=== PATIENT | female | born 1960 | race Two or more races ===

== ENCOUNTER 2020-10-11 16:21 | Emergency (ER) | payer OTHER ==
[~2020-10-11] VITALS: Ht 160 cm; Wt 61.7 kg
[2020-10-11] MEDS ORDERED: NEURONTIN300 MG PO (16:42)
[2020-10-11] MEDS ORDERED: PRISTIQ25 MG PO (16:43)
[2020-10-11] MEDS ORDERED: CLONAZEPAM1 MG PO (16:43)
[2020-10-11] MEDS ORDERED: PEPCID AC20 MG PO (20:38)
[2020-10-11] MEDS ORDERED: LEVSIN0.125 MG PO (20:38)
[2020-10-11] MEDS ORDERED: INTESTINEX680 M1 PO (20:38)
== END 2020-10-11 20:49 | disposition home or self-care (01) ==
LOC: ER 16:21
DX: K52.9 Noninfective gastroenteritis and colitis, unspecified (principal); R10.84 Generalized abdominal pain

== ENCOUNTER 2020-11-14 13:49 | Outpatient (CLI) | payer OTHER ==
[~2020-11-14 13:49] MED LIST: CLONAZEPAM1 MG PO; INTESTINEX680 M1 PO; LEVSIN0.125 MG PO; NEURONTIN300 MG PO; PEPCID AC20 MG PO; PRISTIQ25 MG PO
== END 2020-11-14 13:56 | disposition home or self-care (01) ==
LOC: RAD 13:49
DX: M79.641 Pain in right hand (principal)

== ENCOUNTER 2020-12-03 09:44 | Emergency (ER) | payer OTHER ==
[~2020-12-03] VITALS: Ht 160 cm; Wt 63.5 kg
== END 2020-12-03 13:05 | disposition home or self-care (01) ==
LOC: ER 09:44
DX: R51.9 Headache, unspecified (principal)

== ENCOUNTER 2021-04-19 14:19 | Emergency (ER) | payer OTHER ==
[~2021-04-19] VITALS: Ht 165.1 cm; Wt 68.0 kg
[2021-04-19] MEDS ORDERED: NAPROXEN250 MG PO (17:08)
[2021-04-19] MEDS ORDERED: ORPHENADRINE C100 MG PO (17:08)
== END 2021-04-19 17:20 | disposition home or self-care (01) ==
LOC: ER 14:19
DX: M54.50 Low back pain, unspecified (principal); M62.838 Other muscle spasm

== ENCOUNTER → 2021-09-20 | Emergency (ER) | payer OTHER ==
[~2021-09-20] VITALS: Ht 160 cm; Wt 65.8 kg
[~2021-09-20] MED LIST changes: +NAPROXEN250 MG PO; +ORPHENADRINE C100 MG PO
== END | disposition left against medical advice (07) ==
LOC: ER 22:18
DX: Z53.21 Procedure and treatment not carried out due to patient leaving prior to being seen by health care provider (principal)